=== PATIENT | female | born 1950 | race Caucasian/White ===

== ENCOUNTER 2025-02-07 08:48 | Outpatient (AMB) | payer MEDICARE, MEDICAID, SELFPAY ==
--- NOTE | 2025-02-07 09:11 | ORTHONT_ITS ---
Vital signs 02/07/25 09:13 Height 1.65 m Height Method Stated Weight 79.946 kg Weight Measurement Method Standing Scale BMI 29.3 BP 132/75 H Blood Pressure Source Automatic Cuff Blood Pressure Location Left Upper Arm Position Sitting Respiration 19 Pulse 59 L Pulse Source Monitor Temp 97.5 F Temp Source Temporal Artery Scan Pulse Oximetry (%) 97 Oxygen Delivery Method Room Air Med/Allergies Allergies & Medications Allergies No Known Allergies Allergy (Verified 02/07/25 09:14) Medication Reconciliation Unobtainable 02/07/25 [History Confirmed 02/07/25] Exam Exam Patient is in no acute distress and is cooperative with the examination today. Breathing is nonlabored. Patient has a normal mood and affect. Bilateral extremities were evaluated and demonstrates sensation intact to light touch. Palpable pedal pulses are present. No significant edema is present. Bilateral hips were examined. The patient has no pain with log roll of the hips. Internal rotation to 30 degrees and external rotation to 30 degrees is painless. Negative FADIR. Right knee was examined today. The right knee is in reasonable alignment. Range of motion from 0-120 degrees. Knee is stable to varus and valgus as well as AP translation with <5mm. Patient has a negative McMurrays. There is no pain with patellofemoral compression and no crepitus noted. The knee is nontender to palpation. Left knee was examined today. The left knee is in varus alignment. Range of motion from 0-115 degrees. Knee is stable to varus and valgus as well as AP tr anslation with <5mm. Patient has a negative McMurrays. There is no pain with patellofemoral compression and no crepitus noted. The knee is tender to palpation medially. X-rays demonstrate joint space narrowing on both the medial and lateral tibiofemoral compartments Assessment and Plan Problem List (1) Arthritis of left knee: Status: Acute Plan: Patient is a pleasant 74-year-old female with left knee pain and left knee arthritis. We discussed different treatment options. We discussed injections, anti-inflammatories, and physical therapy. She would like to proceed with a cortisone injection today. I will also order a weightbearing x-ray Recommend knee cortisone injection as patient would like to proceed with conservative treatment at this time. The risks and benefits of the procedure were reviewed with the patient and patient gave verbal consent to continue with the procedure. Procedure: performed by Dr. Callahan Using sterile technique the left knee was thoroughly prepped with alcohol, and approximately 1 cc of Depo-Medrol 80mg/mL and 4 cc of 0.2% ropivacaine was injected without resistance into the medial tibial femoral joint space. The patient tolerated the procedure. 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 (2111-5259) Surgical Proc/IM SQ injection Major Surgical Procedure: Yes (KNEE INJECTION) Medication Given Medication Given Medication Given: Yes Documented Dose Given: 1 Route: Infiitration Medication Given Medication Given Medication Given: Yes Documented Dose Given: 4 Route: Infiitration Office Meds methylprednisolone acetate 80 mg/mL suspension for injection Performing Provider: Michael Callahan MD Performing Location: [facility] Administered by: Michael Callahan MD on 02/07/25 10:16 Dose Route Admin Location Dispensed Lot Number Expiration Date [facility] Rn Social Work 80 mg intra-articular 1 mL [id number] 12/07/26 [address]-[address] [facility] ropivacaine (PF) 2 mg/mL (0.2 %) injection solution Performing Provider: Mihcael Callahan MD Performing Location: [facility] Administered by: Michael Callahan MD on 02/07/25 10:16 Dose Route Admin Location Dispensed Lot Number Expiration Date [facility] Rn Social Work 20 mL Infiltration 20 mL [id number] 05/09/26 37254-045-32 [facility] Intake Visit Data Collection New Patient or Established: New Patient (never been to [facility]) Reason for Visit:: LEFT KNEE PAIN Seen by Clinical Staff ONLY (RN/MA): No Consumer Services Advisor Required: Yes PCP or OBGYN visit in last 3 months: Yes Hx Now: No Do You Feel Safe at Home: Yes Authorities Contacted: N/A Questionairres Past Medical History Past Medical History Have you ever been diagnosed with any of the following: Cardiology Problems Hypercholesterolemia: Yes Surgical History Pacemaker: Yes Subjective Visit Visit for: new patient and knee (LEFT) Immunization / Flu Flu Vaccine in the Last 12 Months: Yes Flu Vaccine Exclusion Criteria: Already Received History of Present Illness Chief complaint: Left knee pain Date of injury / onset of symptoms: 1 YEAR Patient is a 74-year-old female with a left knee pain that has been ongoing for over a year. She reports her function has been very limited because of the pain. She is using a cane and feels like the knee is swollen and weak. She has not had any conservative treatment Personal History Occupation: [employer] HOME Pain Pain level (0-10): 0 Ambulatory data Ambulatory device: cane Treatments Number of previous injections: 1 Improvement with previous injections: No Improvement with PT: No Improvement with NSAIDS: no Review of Systems Review of Systems: All systems negative unless otherwise noted in HPI.
[2025-02-07 09:13] VITALS: BP 132/75; PULSE 59; RESP 19; TEMP 36.4; O2SAT 97; BMI 29.3
--- NOTE | 2025-02-07 09:31 | XR_ITS ---
Examination: Bilateral AP knees single view Left knee standing PA lateral axial 3 views TECHNIQUE: Bilateral AP knees standing single view Left knee PA flexion standing, lateral standing, axial left knee 3 views total 4 views Date and time: February 07, 2025 0945 hours INDICATIONS: Left knee swelling and pain one year. FINDINGS: Moderate osteopenia. Moderate narrowing medial joint space right knee Advanced narrowing medial lateral joint spaces left knee as well as left patellofemoral joint No fractures Small knee effusion IMPRESSION: Advanced left knee tricompartment osteoarthritis
== END 2025-02-07 09:33 | disposition home or self-care (01) ==
LOC: HODSRG 08:48
PROVIDERS: PCP Physician Assistant; Referring Provider Physician Assistant; Supervising Provider Orthopaedic Surgery Adult Reconstructive Orthopaedic Surgery; Visit Provider Orthopaedic Surgery Adult Reconstructive Orthopaedic Surgery
DX: M17.12 Unilateral primary osteoarthritis, left knee (principal); E78.00 Pure hypercholesterolemia, unspecified; Z95.0 Presence of cardiac pacemaker
CPT/HCPCS: 20610; 73564; 99204; J1010; J2795; G0463

== ENCOUNTER 2025-05-14 07:55 | Outpatient (AMB) | payer MEDICARE, MEDICAID, SELFPAY ==
--- NOTE | 2025-05-14 08:16 | ORTHONT_ITS ---
Vital signs 05/14/25 08:17 Height 1.65 m Height Method Measured Weight 83.574 kg Weight Measurement Method Standing Scale BMI 30.7 BP 149/84 H Blood Pressure Source Automatic Cuff Blood Pressure Location Left Upper Arm Position Sitting Respiration 20 Pulse 60 Pulse Source Monitor Temp 97.3 F Temp Source Temporal Artery Scan Pulse Oximetry (%) 98 Oxygen Delivery Method Room Air Med/Allergies Allergies & Medications Allergies No Known Allergies Allergy (Verified 05/14/25 08:18) Medication Reconciliation Unobtainable 02/07/25 [History Confirmed 05/14/25] Exam Exam Patient is in no acute distress and is cooperative with the examination today. Breathing is nonlabored. Patient has a normal mood and affect. Bilateral extremities were evaluated and demonstrates sensation intact to light touch. Palpable pedal pulses are present. No significant edema is present. Bilateral hips were examined. The patient has no pain with log roll of the hips. Internal rotation to 30 degrees and external rotation to 30 degrees is painless. Negative FADIR. Right knee was examined today. The right knee is in reasonable alignment. Range of motion from 0-120 degrees. Knee is stable to varus and valgus as well as AP translation with <5mm. Patient has a negative McMurrays. There is no pain with patellofemoral compression and no crepitus noted. The knee is nontender to palpation. Left knee was examined today. The left knee is in varus alignment. Range of motion from 0-115 degrees. Knee is stable to varus and valgus as well as AP tr anslation with <5mm. Patient has a negative McMurrays. There is no pain with patellofemoral compression and no crepitus noted. The knee is tender to palpation medially. X-rays demonstrate joint space narrowing on both the medial and lateral tibiofemoral compartments Assessment and Plan Problem List (1) Arthritis of left knee: Status: Acute Plan: Patient is a pleasant 74-year-old female with left knee pain and left knee arthritis. We discussed different treatment options. She has no pain currently and does not want an injection today She will call us if the pain worsens and she wants an injection Advanced Care Planning Discussion Advance care planning discussed with:: patient Office Procedures GNS Level of Care Nursing/Assessment Patient Status: Established Patient Nursing Assessment/Reassesment: Medication Reconciliation, Update PMH in EMR and Vital Signs Coordination of Care: Complex Care and Chronic Disease 1-5, Education Complex Pt/Fam, Consent,records obtained, informed consent, Results/Orders obtained and Staff clarify orders Special Needs: Language special needs Established Patient Charge Established Patient Point Assignment: 95 Established Patient Point Charge: EP Level 3 (80-115) MA Intake Visit Data Collection New Patient or Established: Established Patient (seen at [facility] within 3 years) Reason for Visit:: 3 MONTH F/U KNEE INJECTION Seen by Clinical Staff ONLY (RN/MA): No 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 PCP or OBGYN visit in last 3 months: Yes Hx Now: No Do You Feel Safe at Home: Yes Authorities Contacted: N/A Questionairres Past Medical History Past Medical History Have you ever been diagnosed with any of the following: Cardiology Problems Hypercholesterolemia: Yes Surgical History Pacemaker: Yes Subjective Visit Visit for: follow up visit and knee Immunization / Flu Flu Vaccine in the Last 12 Months: Yes Flu Vaccine Exclusion Criteria: Already Received History of Present Illness Chief complaint: 3 MONTH F/U KNEE INJECTION Date of injury / onset of symptoms: 1 YEAR Patient is a 74-year-old female with a left knee pain that has been ongoing for over a year. She reports her function has been very limited because of the pain. She is using a cane and feels like the knee is swollen and weak. She has not had any conservative treatment. 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
[2025-05-14 08:17] VITALS: BP 149/84; PULSE 60; RESP 20; TEMP 36.3; O2SAT 98; BMI 30.7
== END 2025-05-14 08:33 | disposition home or self-care (01) ==
PROVIDERS: PCP Physician Assistant; Referring Provider Physician Assistant; Supervising Provider Orthopaedic Surgery Adult Reconstructive Orthopaedic Surgery; Visit Provider Orthopaedic Surgery Adult Reconstructive Orthopaedic Surgery
DX: M17.12 Unilateral primary osteoarthritis, left knee (principal)
CPT/HCPCS: 99213; G0463